=== PATIENT | female | born 1990 | race Two or more races ===

== ENCOUNTER → 2024-07-26 | Emergency (ER) | payer OTHER ==
[~2024-07-26] VITALS: Ht 154.9 cm; Wt 54.4 kg
[~2024-07-26] MED LIST: CEFTRIAXONE SODIUM 1,000 MG VIAL IM STA; CEFTRIAXONE SODIUM 1,000 MG VIAL ONE; DIPHTH,PERTUSS(ACELL),TET VAC 0.5 ML SYRINGE IM ONE; LIDOCAINE HCL 1%/EPINEPHRINE 20ML VIAL IJ ONE; SYMBICORT 16010.2 GM; TETANUS & DIPHTHERIA TOX,ADULT 0.5 ML VIAL IM STA
== END | disposition home or self-care (01) ==
LOC: ER 17:53
DX: S70.371A Other superficial bite of right thigh, initial encounter (principal); W55.01XA Bitten by cat, initial encounter; Y93.89 Activity, other specified; Y92.018 Other place in single-family (private) house as the place of occurrence of the external cause
CPT/HCPCS: 90471; 90714; J1670